=== PATIENT | male | born 1960 | race Caucasian/White ===

== ENCOUNTER 2021-07-06 21:53 | Inpatient (IN) | payer OTHER ==
[~2021-07-06] VITALS: Ht 180.3 cm; Wt 74.8 kg
[2021-07-06 21:55] VITALS: BP 123/68
[2021-07-06 22:26] LABS: BASO # 0.1 10*3/uL (0.0-0.1); BASO % 1.1 % (0.0-1.0); EOS # 0.2 10*3/uL (0.0-0.4); EOS % 4.3 % (1.0-4.0); HEMATOCRIT 40.3 % (42.0-52.0); LYMPH % 22.1 % (27.0-41.0); MEAN CELL VOLUME 92.4 fl (80.0-94.0); MEAN CORPUSCULAR HGB CONC 32.5 g/dl (33.0-37.0); MEAN PLATELET VOLUME 9.5 fl (9.6-12.3); MONO # 0.5 10*3/uL (0.1-1.0); MONO % 9.9 % (3.0-9.0); NEUT # 2.9 10*3/uL (2.3-7.9); NEUT % 62.4 % (47.0-73.0); PLATELET COUNT AUTOMATED 222 10*3/uL (130-400); RED BLOOD COUNT 4.36 10*6/uL (4.50-5.90); RED CELL DISTRI WIDTH 13.3 % (0-14.5); WHITE BLOOD COUNT 4.7 10*3/uL (4.8-10.8)
[2021-07-06 22:41] LABS: ALBUMIN 3.3 gm/dl (3.1-4.5); ALKALINE PHOSPHATASE 51 U/L (45-117); BUN 27 mg/dl (7-24); CHLORIDE 112 mmol/L (98-107); CREATININE 0.85 mg/dL (0.70-1.30); POTASSIUM 3.9 mmol/L (3.5-5.1); SGOT/AST 12 IU/L (3-35); SGPT/ALT 27 U/L (12-78); SODIUM 146 mmol/L (136-145); TOTAL PROTEIN 6.5 gm/dL (6.4-8.2)
[2021-07-06 22:43] LABS: ACETAMINOPHEN (TYLENOL) < 5.0 ug/ml (10-30)
[2021-07-06 22:54] LABS: ETHYL ALCOHOL < 3.0 mg/dl (<3)
[2021-07-07 00:06] VITALS: BP 124/64
[2021-07-07 02:31] VITALS: BP 128/72
[2021-07-07 02:33] LABS: BILIRUBIN Negative (Negative); BLOOD Negative (Negative); CLARITY Clear (Clear); COLOR Yellow (Yellow); GLUCOSE Negative (Negative); KETONE Negative (Negative); LEUKO ESTERASE Negative (Negative); NITRITE Negative (Negative); PH 5.5 (4.5-8.0); SPECIFIC GRAVITY 1.025 (1.001-1.030)
[2021-07-07 02:38] LABS: WBC 0-2 wbc/hpf (0-5)
[2021-07-07 02:42] LABS: URINE AMPHETAMINES < 1000 (1000ng/ml); URINE BARBITURATES < 200 (200ng/ml); URINE BENZODIAZEPINES < 200 (200ng/ml); URINE CANNABINOIDS (THC) < 50 (50ng/ml); URINE COCAINE < 300 (300ng/ml); URINE METHADONE < 300 (300ng/ml); URINE OPIATES < 300 (300ng/ml)
[2021-07-07 02:43] LABS: URINE PHENCYCLIDINE < 25 (25ng/ml)
[2021-07-07 03:40] VITALS: BP 128/72
[2021-07-07] MEDS ORDERED: ARICEPT10 M1 PO (03:58)
[2021-07-07] MEDS ORDERED: ATIVAN0.5 MG PO (04:17)
[2021-07-07] MEDS ORDERED: NAMENDA10 MG PO (04:21)
[2021-07-07] MEDS ORDERED: SEROQUEL25 MG PO (04:25)
[2021-07-07] MEDS ORDERED: THIAMINE HCL100 MG PO (04:26)
[2021-07-07] MEDS ORDERED: ZOLOFT25 MG PO (04:27)
[2021-07-07] MEDS ORDERED: LISINOPRIL20 MG PO (04:31)
[2021-07-07] MEDS ORDERED: VITAMIN D350 MC2 PO (04:42)
[2021-07-07] MEDS ORDERED: ZYPREXA2.5 MG PO (04:43)
[2021-07-07] MEDS ORDERED: ZYPREXA10 M2 IM (04:45)
[2021-07-07 06:36] LABS: BUN 22 mg/dl (7-24); CHLORIDE 110 mmol/L (98-107); CHOLESTEROL 144 mg/dL (<200); CREATININE 0.89 mg/dL (0.70-1.30); LDL CHOLESTEROL 88 mg/dL (9-159); POTASSIUM 4.1 mmol/L (3.5-5.1); SODIUM 145 mmol/L (136-145); TRIGLYCERIDES 53 mg/dl (<150)
[2021-07-07 07:42] LABS: VITAMIN D, 25-HYDROXY 48.9 ng/mL (30-100)
[2021-07-07 07:47] VITALS: BP 135/69
[2021-07-07 12:00] VITALS: BP 135/69
[2021-07-07 20:00] VITALS: BP 116/66
[2021-07-08 07:53] VITALS: BP 128/92
[2021-07-08 20:00] VITALS: BP 99/64
[2021-07-09 08:00] VITALS: BP 120/62
[2021-07-09 20:02] VITALS: BP 125/77
[2021-07-10 07:31] VITALS: BP 109/80
[2021-07-10 19:53] VITALS: BP 119/70
[2021-07-11 07:22] VITALS: BP 110/64
[2021-07-11 19:46] VITALS: BP 122/69
[2021-07-11 20:00] VITALS: BP 122/69
[2021-07-12 07:54] VITALS: BP 136/73
[2021-07-12 20:00] VITALS: BP 125/67
[2021-07-13 07:40] VITALS: BP 152/79
[2021-07-13 19:58] VITALS: BP 105/67
[2021-07-14 08:00] VITALS: BP 150/68
[2021-07-14 20:00] VITALS: BP 113/71
[2021-07-15 07:57] VITALS: BP 154/87
[2021-07-15 20:00] VITALS: BP 139/75
[2021-07-16 07:47] VITALS: BP 119/76
[2021-07-16 19:57] VITALS: BP 111/69
[2021-07-17 08:00] VITALS: BP 146/72
[2021-07-17 20:00] VITALS: BP 111/62
[2021-07-18 08:17] VITALS: BP 133/61
[2021-07-18 20:00] VITALS: BP 120/61
[2021-07-19 08:00] VITALS: BP 106/91
[2021-07-19 19:24] VITALS: BP 118/71
[2021-07-20 08:00] VITALS: BP 129/86
[2021-07-20 20:00] VITALS: BP 110/58
[2021-07-21 08:09] VITALS: BP 109/65
[2021-07-21 20:00] VITALS: BP 106/80
[2021-07-22 08:00] VITALS: BP 113/62
[2021-07-22] MEDS ORDERED: NEUDEXT PO (11:03)
[2021-07-22] MEDS ORDERED: MEMANTINE HCL10 MG PO (11:03)
[2021-07-22] MEDS ORDERED: LORAZEPAM1 MG PO (11:03)
[2021-07-22] MEDS ORDERED: Mysoline50 MG PO (11:03)
[2021-07-22] MEDS ORDERED: DIVALPROEX SOD125 M1 PO (11:03)
[2021-07-22] MEDS ORDERED: VITAMIN E180 M1 PO (11:03)
[2021-07-22] MEDS ORDERED: VITAMIN D350 MC2 PO (11:03)
[2021-07-22] MEDS ORDERED: MEDROXYPROGESTE10 M1 PO (11:03)
[2021-07-22] MEDS ORDERED: RIVASTIGMINE1 EAC2 T (11:03)
== END 2021-07-22 12:40 | DRG 758 ==
LOC: ED 21:53 → 3N 07-07 02:36 → EDHOLD 07-07 02:36 → 3N 07-07 02:53
PROVIDERS: Emergency Medicine; ADMIT Psychiatry & Neurology Psychiatry; ATTEND Psychiatry & Neurology Psychiatry
DX: F63.81 Intermittent explosive disorder (principal); D64.9 Anemia, unspecified; F41.9 Anxiety disorder, unspecified; F29 Unspecified psychosis not due to a substance or known physiological condition; Z20.822 Contact with and (suspected) exposure to COVID-19; E87.3 Alkalosis; E87.0 Hyperosmolality and hypernatremia; R73.9 Hyperglycemia, unspecified; E87.8 Other disorders of electrolyte and fluid balance, not elsewhere classified; I10 Essential (primary) hypertension; F48.2 Pseudobulbar affect; F33.3 Major depressive disorder, recurrent, severe with psychotic symptoms; G30.9 Alzheimer's disease, unspecified; F02.81 Dementia in other diseases classified elsewhere, unspecified severity, with behavioral disturbance